=== PATIENT | female | born 1955 | race Caucasian/White ===

== ENCOUNTER → 2024-01-04 09:59 | Outpatient (REF) | payer OTHER, SELFPAY | LOC: RAD 09:59 | PROVIDERS: ATTENDING PHYSICIAN Physician Assistant; FAMILY PHYSICIAN Family Medicine | DX: M25.531 Pain in right wrist (principal); V89.2XXA Person injured in unspecified motor-vehicle accident, traffic, initial encounter | CPT/HCPCS: 73110 ==

== ENCOUNTER 2024-04-01 08:27 | Emergency (ER) | payer OTHER, SELFPAY ==
[2024-04-01] VITALS (10 sets, daily range): BP systolic 137–179; BP diastolic 74–93; BMI 32.2
[2024-04-01 09:11] LABS: Glucose - Point of Care 156 mg/dl (70-99)
--- NOTE | 2024-04-01 09:25 | ED.MUSCINJ ---
HPI-Injury
General
Chief Complaint: Fall
Source: patient and records
Exam Limitations: none
Time Seen by Provider: 04/01/24 08:37
Nursing documentation reviewed up to this point in time: agreed with
History of Present Illness-Injury
Is this injury a work related problem?: No
Is pt an associate of [facility]?: No
Initial Injury comments:
68-year-old female slip and fall walking out of her room fell onto her right hip she has had a right hip replacement a few years ago by Dr. Silva, no head strike no preceding chest pain or shortness of breath her hip is internally rotated, she has
had no fracture or dislocation of this hip previously
Past History
Past History
ED Past Medical History: Asthma, HTN, NIDDM and Other (Kidney stone, or neck tract infections)
ED Past Surgical History: Orthopedic and Other (Patient had left ankle surgery, and lithotripsy for kidney stone)
Social History
Tobacco: Non-smoker
Alcohol: None
Drug: None
Personal: Single
Living: with family
Employment: Employed
Review of Systems
Review of Systems
All Other Systems: Not applicable
Constitutional: Denies fever or fatigue
EENT: Reports no symptoms
Respiratory: Reports no symptoms; Denies trouble breathing
Cardiac: Reports no symptoms
ABD/GI: Reports no symptoms
Musculoskeletal: Reports joint pain
Phy Exam
Physical Exam
Physical Exam:
Physical Exam
General: no apparent distress, not acutely ill
Neck: No posterior neck pain no tongue bite no overt signs of head or neck trauma
Heart: Regular
Lungs: no acute respiratory distress
Abdomen: Soft nontender
Neuro: alert and oriented. no focal neurological deficits
Skin: no rash
Psychiatric: well kept. interactive and cooperative
Extremities: Internally rotated right lower extremity distal pulses are intact
Injury Course
Orders/Labs/Results
Orders:
Orders
04/01/24 09:03
CR Hip - RT w/wo Pel 2-3 Vw* Urgent
Comment:
Reason For Exam: fall
Include a pelvis x-ray?: Yes
04/01/24 09:09
Bedside Glucose- Treatment ONCE
04/01/24 09:52
ASA Classification Routine
Propofol [Diprivan] 100 mg IV NOW STA
04/01/24 10:08
Hip, Right 1 View [CR Hip - RT without Pel 1 Vw] Urgent
Comment:
Reason For Exam: hip reduction
Abnormal Lab Results
04/01/24
09:10
POC Glucose 156 H mg/dl
(70-99)
Procedures
Moderate Sedation
ASA Risk Score: Class II
Chart and allergies reviewed: Yes
Consent for anesthesia obtained: Yes
Time out completed (validating right patient & procedure): Yes
Moderate Sedation Start Time(when first medication is given): 10:03
History of difficult intubation: No
Airway free of obstruction: Yes
Patient has a gag reflex: Yes
Patient is able to open mouth: Yes
Patient has no dentures: Yes
Patient has no loose teeth: Yes
Medication administered by Provider during Moderate Sedation: IV Propofol (mg)
Total dose administered: 100
Time drug administered: 10:03
Moderate Sedation Procedure End Time: 10:15
Splint Check
Splint checked by provider?: Yes
Circulation/Movement/Sensation post splint application: brisk cap refill
Splinting/Sling Placement
Right Knee:
Procedure completed by: hailey
Pre-splint extermity exam: neurovascular intact
Type of splint: knee immobilizer
Splint material: universal
Splint checked by provider?: Yes
Joint/Fracture Reduction
Right Hip:
Indication for procedure:: Prosthetic dislocation
Procedure completed by: Hailey
Consent form signed: Yes
Joint reduced: with anesthesia sedation
Injury was: closed
Further treatement: needs re-check only
Post reduction exam: stable
Capillary Refill: normal
Normal distal neurovascular exam?: Yes
MDM/Problems Addressed
Differential Diagnosis Includes:
Prosthetic hip dislocation periprosthetic fracture pelvic fracture proximal femur fracture
MDM/Problems Addressed:
Fall hip injury
Chronic conditions affecting care:
Prior hip replaced
Chronic conditions affecting care: DM and HTN
Acute Exacerbation and/or Progression of Chronic Illness:
Hip replacement
Acute Exacerbation and/or Progression of Chronic Illness: DM and HTN
*Radiology
Radiology exam reviewed: preliminary read by ED provider
*Pulse Oximetry
Patient hypoxic: no
*At Risk Specialist Interpretation
Rate: normal
Interpretation: normal
Heart Rate: 78
Rhythm: sinus
*Critical Care Note
Total Time (30-74mins, 75-104mins- exclusive of procedures): Not Applicable
Data Reviewed
Review of Other/Old Records Reveals: Other (Prior orthopedic notes)
Source: patient
Update Note
Update Note:
Update, x-ray confirmed prosthetic hip dislocation, consent for reduction obtained sedated 2 providers + RAMAKRISHNA gallardo, reduce placed in the immobilizer patient did transiently desaturate due to apnea immediately recognized given
positive pressure with improvement of her oxygenation
ED Attending Note
-
Portions of this chart may have been created with voice recognition software.� Occasional wrong word or��sound alike� substitutions may have occurred due to the inherent limitations of voice recognition software.
Discharge Plan
Departure
Patient Disposition: Home (Routine Discharge)
Date of Disposition: 04/01/24
Time of Disposition: 10:14
Patient with high blood pressure during this ER visit?: No
Condition: Good
Discharge Problem:
Hip dislocation, right
Instructions: Preventing falls in adults, Hip Dislocation (DC), MODERATE SEDATION ADULT
Prescriptions:
No Action
montelukast 10 MG tablet
10 mg PO HS
atorvastatin 20 mg Tablet
20 mg PO HS
oxybutynin chloride 10 mg Tablet Extended Release 24hr
30 mg PO DAILY
glyburide 2.5 mg Tablet
2.5 mg PO BID
metformin 1,000 mg Tablet
1,000 mg PO BID
ferrous sulfate 325 mg (65 mg iron) Tablet
325 mg PO DAILY
oxycodone 5 mg tablet
5 mg PO Q6H PRN (Reason: moderate-severe pain) Qty: 30 0RF
Rx Instructions:
1 tab for moderate pain, 2 if severe.
Dx total joint. Ongoing therapy.
valsartan 80 mg Tablet
80 mg PO HS Qty: 1 0RF
Rx Instructions:
HOLD if systolic blood pressure <130 while on Oxycodone.
lidocaine 4 % adhesive patch,medicated
1 patch topical DAILY
Rx Instructions:
Apply to sides of right hip. DO NOT place over incision.
aspirin 325 mg tablet
325 mg PO DAILY
Rx Instructions:
Take daily x4 weeks for blood clot prevention (started 07/16/2022); then resume Aspirin 81 mg daily.
cefadroxil 500 mg capsule
500 mg PO DAILY
docusate sodium 100 mg capsule
100 mg PO DAILY
Referrals:
Omar Truong MD [Family Provider] -
Derian Silva MD [Active] - Next open appointment
Activity Restrictions/Additional Instructions:
Tylenol as needed for pain, use knee immobilizer, call your orthopedist tomorrow to arrange follow-up care
Interventions
Interventions:
*Risk Screen - Suicide Last Done: 04/01/24 08:34
*General Assessment Last Done: 04/01/24 08:34
*Neglect/Abuse Screening Last Done: 04/01/24 08:34
*ED COVID-19 Vaccine History Last Done: 04/01/24 08:34
ED-Musculoskeletal Assessment Last Done: 04/01/24 08:34
ED- Neurological Assessment Last Done: 04/01/24 08:34
ED-Skin Assessment Last Done: 04/01/24 08:34
Discharge Date and Time
Print Language: BENGALI
[2024-04-01] MEDS: DIPRIVAN 100 MG IV (10:03)
== END 2024-04-01 11:20 | disposition home or self-care (01) ==
LOC: EMR 08:27
PROVIDERS: EMERGENCY PHYSICIAN Emergency Medicine; FAMILY PHYSICIAN Family Medicine
DX: T84.020A Dislocation of internal right hip prosthesis, initial encounter (principal); W19.XXXA Unspecified fall, initial encounter; Y79.2 Prosthetic and other implants, materials and accessory orthopedic devices associated with adverse incidents; M25.551 Pain in right hip; J45.909 Unspecified asthma, uncomplicated; I10 Essential (primary) hypertension; E11.9 Type 2 diabetes mellitus without complications; Z87.442 Personal history of urinary calculi
CPT/HCPCS: 99283; 27265; 99152; 73501; 73502; 82962